=== PATIENT | male | born 1975 | race Caucasian/White ===

== ENCOUNTER 2024-04-05 13:02 | Emergency (ER) | payer BC, SELFPAY ==
[2024-04-05 13:06] VITALS: BP 146/92
--- NOTE | 2024-04-05 13:26 | ED.GENMED ---
History of Present Illness
General
Chief Complaint: Musculo-Skeletal Complaint
Source: patient
Exam Limitations: none
Time Seen by Provider: 04/05/24 13:10
Nursing documentation reviewed up to this point in time: agreed with
History of Present Illness
History of Present Illness:
Patient is a 48-year-old male who presents to the ER for evaluation of left knee injury. Patient was playing basketball on Tuesday 2 days ago and tweaked his left knee while playing. He did continue to play the rest of the game. He also did the
same thing yesterday but felt a pop in his knee. He is able to bear weight but does have discomfort. He complains of pain along the medial aspect of the left knee. No other injuries.
Past History
Past History
ED Past Medical History: Other (Lumbar disc disease)
ED Past Surgical History: Orthopedic (Lumbar disc surgery 2016)
Patient has exhibited threatening behavior?: No
Social History
Tobacco: Non-smoker
Alcohol: Occasional
Drug: None
Personal:
Living: with family
Employment: Employed (Self-employed)
Family History
Family History: Hypertension and CAD (Father with history of coronary artery disease, CABG in his 70s. He is in his 80s alive and well.)
Review of Systems
Review of Systems
Allergies reviewed?: Yes
All Other Systems: ROS reviewed and negative except as documented in HPI and ROS
Constitutional: Reports no symptoms
Musculoskeletal: Reports other (left knee pain/injury )
Skin: Reports no symptoms
Psychiatric: Reports no symptoms
Phy Exam
General Physical Exam
General Presentation: no apparent distress
General age: appears stated age
General Skin: warm and dry
General Habitus: normal
General Mental: alert
General Hydration: appears well hydrated
Neurological Exam
Neurological Exam: alert and oriented x3
Musculoskeletal Exam
Musculoskeletal Exam: other (lle with strong pulses no obvious swelling mild discomfort with medial stress no laxity acl appears intact nml distal sensation )
Course
Orders/Labs/Results
Orders:
Orders
04/05/24 13:15
Knee, Left 4 or More Views [CR Knee - Left 4 Or More View*] Urgent
Comment:
Reason For Exam: trauma
04/05/24 13:29
Ibuprofen [Motrin] 600 mg PO NOW STA
Vital Signs
Initial and Last Documented VS:
Initial Vital Signs
Temp Pulse Resp Pulse Ox
98.3 F 75 19 98
04/05/24 13:04 04/05/24 13:04 04/05/24 13:04 04/05/24 13:04
Last Documented Vital Signs
Temp Pulse Resp BP Pulse Ox
98.3 F 75 19 146/92 98
04/05/24 13:04 04/05/24 13:04 04/05/24 13:04 04/05/24 13:06 04/05/24 13:04
MDM/Problems Addressed
Differential Diagnosis Includes:
not limited to: knee sprain /strain/fx
MDM/Problems Addressed:
Symptoms are consistent w/ knee sprain strain injury small effusion on x-ray no obvious fracture will DC with crutches immobilizer NSAIDs RICE and Ortho follow
*Radiology
Radiology exam reviewed: radiology read reviewed
*Pulse Oximetry
Patient hypoxic: no
*Critical Care Note
Total Time (30-74mins, 75-104mins- exclusive of procedures): Not Applicable
ED Attending Note
-
Portions of this chart may have been created with voice recognition software.� Occasional wrong word or��sound alike� substitutions may have occurred due to the inherent limitations of voice recognition software.
Discharge Plan
Departure
Patient Disposition: Home (Routine Discharge)
Date of Disposition: 04/05/24
Time of Disposition: 14:30
Patient with high blood pressure during this ER visit?: Yes
Discharge Problem:
Knee sprain
Instructions: Knee Immobilizer (DC), Knee Sprain (DC)
Prescriptions:
No Action
levetiracetam 500 MG tablet
1,000 mg PO BID Qty: 60 0RF
Referrals:
Artemio Gorman MD [Active] -
Humble Lyons MD [Active] -
Graham Stephenson DO [Family Provider] -
Activity Restrictions/Additional Instructions:
Wear immobilizer for support. You may use crutches as needed for ambulation. Remove immobilizer night while sleeping. Keep elevated as much as possible.
ice the affected area for the next 24 hours times of time several times a day. Call orthopedics today for an appointment in next several days return for any worsening symptoms .
Interventions
Interventions:
*Risk Screen - Suicide Last Done: 04/05/24 13:06
*General Assessment Last Done: 04/05/24 13:04
*Neglect/Abuse Screening Last Done: 04/05/24 13:06
ED- Fall Risk Assessment Last Done: 04/05/24 13:15
*ED COVID-19 Vaccine History Last Done: 04/05/24 13:04
ED-Musculoskeletal Assessment Last Done: 04/05/24 13:15
Discharge Date and Time
Print Language: DJIBOUTIAN
[2024-04-05] MEDS: MOTRIN 600 MG PO (13:39)
== END 2024-04-05 14:57 | disposition home or self-care (01) ==
LOC: EMR 13:02
PROVIDERS: EMERGENCY PHYSICIAN Emergency Medicine; FAMILY PHYSICIAN Internal Medicine
DX: S83.92XA Sprain of unspecified site of left knee, initial encounter (principal); X58.XXXA Exposure to other specified factors, initial encounter; Y93.67 Activity, basketball; R03.0 Elevated blood-pressure reading, without diagnosis of hypertension; M19.90 Unspecified osteoarthritis, unspecified site
CPT/HCPCS: 99283; 29505; 73564

== ENCOUNTER → 2024-06-05 11:09 | Outpatient (REF) | payer BC, SELFPAY ==
[2024-06-05 12:12] LABS: % Basophils 0.6 % (0-2); % Eosinophils 2.8 % (0-6); % Immature Granulocytes 0.3 % (0-0.5); % Lymphocytes 32.1 % (20.5-51.1); % Monocytes 7.3 % (1.7-9.3); % Neutrophils 56.9 % (42.2-75.2); Absolute Eosinophils 0.2 10^3/uL (0-0.7); Absolute Lymphocytes 2.1 10^3/uL (1.2-3.4); Absolute Monocytes 0.5 10^3/uL (0.1-0.6); Absolute Neutrophils 3.7 10^3/uL (1.4-6.5); Hematocrit 46.4 % (39.0-52.0); Hemoglobin 15.9 g/dL (13.0-18.0); Mean Corp Hgb Conc. 34.3 g/dL (33.0-37.0); Mean Corpuscular Volume 87.5 fL (80.0-94.0); Mean Platelet Volume 9.1 fL (7.4-10.4); Nucleated Red Blood Cells % 0 % (-); Platelet Count 345 10^3/uL (130-400); Red Cell Dist. Width 12.8 % (11.5-14.5); White Blood Cell Count 6.5 10^3/uL (4.8-10.8)
[2024-06-05 12:13] LABS: Urine Albumin Negative (Neg - Trace); Urine Bilirubin Negative (Negative); Urine Character Clear (Clear); Urine Color Yellow; Urine Glucose Negative (Negative); Urine Ketone Negative (Negative); Urine Leukocyte Negative (Negative); Urine Nitrite Negative (Negative); Urine Occult Blood 1+ (Negative); Urine Urobilinogen Negative (Neg - 1+)
[2024-06-05 12:42] LABS: ALT (SGPT) 29 U/L (0-50); AST (SGOT) 25 U/L (17-59); Albumin 4.9 g/dl (3.5-5.0); Alkaline Phosphatase 40 U/L (38-126); Blood Urea Nitrogen 21 mg/dl (9-20); Calcium 10.1 mg/dl (8.4-10.2); Carbon Dioxide 29 mmol/L (22-30); Chloride 102 mmol/L (98-107); Glucose 89 mg/dl (70-99); HDL Cholesterol 57 mg/dl; LDL Cholesterol, Calculated 145 mg/dl; Potassium 4.8 mmol/L (3.5-5.1); Sodium 142 mmol/L (135-145); Total Cholesterol 219 mg/dl (50-199); Total Protein 7.3 g/dl (6.3-8.2); Triglyceride 86 mg/dl (10-149); Very Low Density Lipoprotein 17 mg/dl (0-30); eGFR > 60.00
[2024-06-05 12:56] LABS: Urine Red Blood Cell 0-2 /HPF (0-2); Urine White Cell 0-2 /HPF (0-5)
[2024-06-05 12:57] LABS: Urine Mucus Moderate
[2024-06-05 12:59] LABS: Vitamin D, 25-OH*** 53.8 ng/mL (30-80)
[2024-06-05 13:13] LABS: PSA, Total - Screen 0.76 ng/ml (0.0-4.0); TSH 1.31 uIU/ml (0.47-4.68)
== END ==
LOC: REG 11:09
PROVIDERS: ATTENDING PHYSICIAN Internal Medicine
DX: Z00.00 Encounter for general adult medical examination without abnormal findings (principal); Z12.5 Encounter for screening for malignant neoplasm of prostate
CPT/HCPCS: 36415; 80053; 80061; 81003; 81015; 82306; 84443; 85025; G0103

== ENCOUNTER 2024-06-30 17:38 | Emergency (ER) | payer BC, SELFPAY ==
[2024-06-30 17:39] VITALS: BP 133/82
[2024-06-30 18:24] VITALS: BMI 28.3
--- NOTE | 2024-06-30 18:26 | EDRN ---
Pt thinks he has diverticulitis because he had a bout of it 3-5 years ago. Pt was up all night last night and thought he was constipated but today when he was urinating, he developed pain and it was reminiscent of diverticulitis flare. Abd pain
comes and goes, sharp in nature. No pain currently. Little nausea, no vomiting. No cp, sob, fever/chills/cough, dizziness. Pt says he has very low energy today. Pt took miralax this morning. Pt has been passing small amounts of stool since
last night. Last normal BM 2-3 days ago. No diarrhea.
--- NOTE | 2024-06-30 18:38 | ED.GENMED ---
History of Present Illness
General
Chief Complaint: Abdominal Symptoms
Source: patient
Time Seen by Provider: 06/30/24 18:13
History of Present Illness
History of Present Illness:
48yoM with a history of diverticulosis presenting for evaluation of abdominal pain. Symptoms initially began yesterday evening. He reports pain in his suprapubic and left lower quadrant regions. He also had a sharp pain in his penis while
urinating today. Symptoms are identical to his previous bout of diverticulitis about 5 years ago. He also reports constipation and is only able to pass small pieces of stool at a time. Last bowel movement was about 2 to 3 days ago. He reports
chills but denies any fevers. He denies any testicular pain, hematuria, vomiting, chest pain, shortness of breath. No previous abdominal surgeries. Last colonoscopy was 5 years ago which was normal other than the diverticulosis.
Past History
Past History
ED Past Medical History: Other (Lumbar disc disease)
ED Past Surgical History: Orthopedic (Lumbar disc surgery 2016)
Patient has exhibited threatening behavior?: No
Social History
Tobacco: Non-smoker
Alcohol: Occasional
Drug: None
Personal:
Living: with family
Employment: Employed (Self-employed)
Family History
Family History: Hypertension and CAD (Father with history of coronary artery disease, CABG in his 70s. He is in his 80s alive and well.)
Phy Exam
General Physical Exam
General Presentation: well appearing and no apparent distress
General age: appears stated age
General Skin: warm and dry
General Habitus: normal
General Mental: alert
General Hydration: appears well hydrated
ENT Exam
ENT Exam: normocephalic
Pulmonary Exam
Pulmonary Exam: no respiratory distress
Gastrointestinal Exam
Gastrointestinal Exam: soft, non distended and other (+Tenderness in suprapubic region. Abdomen soft, non-distended. No rebound or guarding. )
[place] Coma Scale
Eye Opening: Spontaneous
Verbal Response: Oriented
Motor Response: Obeys Commands
GCS Total Score: 15
Skin Exam
Skin Exam: normal color and warm/dry
Psychiatric Exam
Psychiatric Exam: normal mood/affect
Course
Orders/Labs/Results
Orders:
Orders
06/30/24 18:29
IV Insert/Care/Rem.- Treatment PRN
06/30/24 18:37
Complete Blood Count/With Diff Urgent
Comprehensive Metabolic Panel Urgent
Lipase Urgent
06/30/24 18:38
CT Abd/pelvis W Iv Cont Urgent
Comment:
Reason For Exam: Suprapubic, LLQ pain
Ketorolac [Toradol] 15 mg IV NOW STA
06/30/24 18:40
Urinalysis Reflex To Culture Urgent
Date Specimen was Collected: 06/30/24
Time Specimen was Collected: 18:38
Urine Microscopic Reflex Cult Urgent
06/30/24 20:11
Amoxicillin 875 mg/Clav 125 mg [Augmentin 875 mg/125 mg] 1 tablet PO NOW STA
Abnormal Lab Results
06/30/24 06/30/24
18:37 18:40
WBC 15.0 H 10^3/uL
(4.8-10.8)
Abs Immat Gran (auto) 0.1 H 10^3/uL
(0-0.05)
Absolute Neuts (auto) 11.2 H 10^3/uL
(1.4-6.5)
Absolute Monos (auto) 1.6 H 10^3/uL
(0.1-0.6)
Lymphocytes % 13.7 L %
(20.5-51.1)
Monocytes % 10.4 H %
(1.7-9.3)
Total Bilirubin 2.0 H mg/dl
(0.2-1.3)
Ur Occult Blood Reflex 3+ A
(Negative)
Urine RBC 11-15 A /HPF
(0-2)
06/30/24 18:37
06/30/24 18:37
Vital Signs
Initial and Last Documented VS:
Initial Vital Signs
Temp Pulse Resp BP Pulse Ox
98.7 F 94 20 133/82 99
06/30/24 17:39 06/30/24 17:39 06/30/24 17:39 06/30/24 17:39 06/30/24 17:39
Last Documented Vital Signs
Temp Pulse Resp BP Pulse Ox
98.7 F 74 14 116/71 97
06/30/24 17:39 06/30/24 20:20 06/30/24 20:20 06/30/24 20:20 06/30/24 20:20
MDM/Problems Addressed
Differential Diagnosis Includes:
48yoM here with lower abd pain x 1 day and constipation x 2-3 days. Hx of diverticulitis and this feels the same. +Chills but no fevers. He is afebrile and hemodynamically stable. He is well-appearing in no acute distress. No signs of peritonitis
on abdominal exam. Differential diagnosis includes but is not limited to: Diverticulitis, colitis, appendicitis, UTI, kidney stone
Initial ED plan: Check abdominal labs, UA, and CT abdomen. IV Toradol for pain.
*Critical Care Note
Total Time (30-74mins, 75-104mins- exclusive of procedures): Not Applicable
Update Note
Update Note:
CT reveals severe acute diverticulitis. No evidence of abscess or perforation. Leukocytosis noted with a white count of 15. Microscopic hematuria noted on urinalysis without signs of infection. Pain is controlled on reassessment. He feels well
for discharge. He was started on a 10-day course of Augmentin, first dose given in ED. Advised clear liquid diet until pain improves. Patient was informed of microscopic hematuria which has also been present on the last 2 urinalyses. Will refer
to urology for outpatient follow-up. Advised close PCP follow-up and strict ED return precautions discussed. Patient expressed understanding and is agreeable to plan. He was discharged in stable condition.
ED Attending Note
-
Portions of this chart may have been created with voice recognition software.� Occasional wrong word or��sound alike� substitutions may have occurred due to the inherent limitations of voice recognition software.
Discharge Plan
Departure
Patient Disposition: Home (Routine Discharge)
Date of Disposition: 06/30/24
Time of Disposition: 20:11
Patient with high blood pressure during this ER visit?: No
Discharge Problem:
Acute diverticulitis, Microscopic hematuria
Instructions: Diverticulitis (DC)
Prescriptions:
New
amoxicillin-pot clavulanate 875-125 mg tablet
1 tab PO Q12H 10 Days Qty: 19 0RF
Referrals:
Jarrod Hanson MD [Active] -
Graham Stephenson DO [Family Provider] -
Activity Restrictions/Additional Instructions:
Take antibiotics as prescribed. Eat a clear liquid diet until pain improves.
Please follow-up with your family doctor. You should also see a urologist for the blood seen in your urine.
Return to the ER with any worsening symptoms, severe pain, fevers, or if you do not have any improvement in 4 days.
Interventions
Interventions:
*Risk Screen - Suicide Last Done: 06/30/24 18:25
*General Assessment Last Done: 06/30/24 17:39
*Neglect/Abuse Screening Last Done: 06/30/24 18:25
*ED COVID-19 Vaccine History Last Done: 06/30/24 18:25
KT-Szajwd-Xvjgovnzuw Assessment Last Done: 06/30/24 18:52
Discharge Date and Time
Discharge Date/Time: 06/30/24 20:34
Print Language: LATVIAN
[2024-06-30 18:44] VITALS: BP 129/80
[2024-06-30] MEDS: TORADOL 15 MG IV (18:44)
[2024-06-30 18:47] LABS: % Basophils 0.3 % (0-2); % Eosinophils 0.3 % (0-6); % Immature Granulocytes 0.5 % (0-0.5); % Lymphocytes 13.7 % (20.5-51.1); % Monocytes 10.4 % (1.7-9.3); % Neutrophils 74.8 % (42.2-75.2); Absolute Basophils 0.1 10^3/uL (0-0.2); Absolute Immature Granulocytes 0.1 10^3/uL (0-0.05); Absolute Lymphocytes 2.1 10^3/uL (1.2-3.4); Absolute Monocytes 1.6 10^3/uL (0.1-0.6); Absolute Neutrophils 11.2 10^3/uL (1.4-6.5); Hemoglobin 15.2 g/dL (13.0-18.0); Mean Corp Hgb Conc. 35.3 g/dL (33.0-37.0); Mean Corpuscular Hgb 29.9 pg (27.0-31.0); Mean Corpuscular Volume 84.5 fL (80.0-94.0); Mean Platelet Volume 8.6 fL (7.4-10.4); Nucleated Red Blood Cells % 0 % (-); Platelet Count 298 10^3/uL (130-400); Red Blood Cell Count 5.09 10^6/uL (4.70-6.10); Red Cell Dist. Width 12.7 % (11.5-14.5)
[2024-06-30 18:52] LABS: Urine Albumin Negative (Neg - Trace); Urine Bilirubin Negative (Negative); Urine Character Clear (Clear); Urine Color Yellow; Urine Glucose Negative (Negative); Urine Ketone Negative (Negative); Urine Leukocyte Negative (Negative); Urine Nitrite Negative (Negative); Urine Occult Blood 3+ (Negative); Urine Urobilinogen Negative (Neg - 1+)
[2024-06-30 19:00] VITALS: BP 124/76
[2024-06-30 19:01] LABS: ALT (SGPT) 20 U/L (0-50); AST (SGOT) 19 U/L (17-59); Albumin 4.5 g/dl (3.5-5.0); Alkaline Phosphatase 47 U/L (38-126); Blood Urea Nitrogen 14 mg/dl (9-20); Carbon Dioxide 27 mmol/L (22-30); Chloride 100 mmol/L (98-107); Estimated Creatinine Clearance 95 ml/min; Glucose 99 mg/dl (70-99); Lipase 62 U/L (23-300); Potassium 4.2 mmol/L (3.5-5.1); Sodium 138 mmol/L (135-145); Total Protein 6.9 g/dl (6.3-8.2); eGFR > 60.00
[2024-06-30 20:20] VITALS: BP 116/71
[2024-06-30] MEDS: AUGMENTIN 875 MG/125 MG 1 TABLET PO (20:21)
== END 2024-06-30 20:34 | disposition home or self-care (01) ==
LOC: EMR 17:38
PROVIDERS: Physician Assistant; EMERGENCY PHYSICIAN Emergency Medicine; FAMILY PHYSICIAN Internal Medicine
DX: K57.32 Diverticulitis of large intestine without perforation or abscess without bleeding (principal); R31.29 Other microscopic hematuria; K59.00 Constipation, unspecified
CPT/HCPCS: 99284; 96374; 74177; 80053; 81003; 81015; 83690; 85025; Q9967

== ENCOUNTER 2024-10-17 22:27 | Emergency (ER) | payer BC, SELFPAY ==
[2024-10-17 22:43] VITALS: BP 126/80
--- NOTE | 2024-10-18 00:19 | ED.GENMED ---
History of Present Illness
General
Chief Complaint: Musculo-Skeletal Complaint
Source: patient
Exam Limitations: none
Time Seen by Provider: 10/17/24 23:47
History of Present Illness
History of Present Illness:
49yo [id number] male presenting for evaluation of a right shoulder injury. Patient was playing basketball and he was hit by another player directly in the right shoulder a few hours ago. He felt the right shoulder joint pop and possibly
popped back into place. He is having pain with range of motion. He also has some paresthesias in the area.
Past History
Past History
ED Past Medical History: Other (Lumbar disc disease)
ED Past Surgical History: Orthopedic (Lumbar disc surgery 2016)
Patient has exhibited threatening behavior?: No
Social History
Tobacco: Non-smoker
Alcohol: Occasional
Drug: None
Personal:
Living: with family
Employment: Employed (Self-employed)
Family History
Family History: Hypertension and CAD (Father with history of coronary artery disease, CABG in his 70s. He is in his 80s alive and well.)
Phy Exam
General Physical Exam
General Presentation: well appearing and no apparent distress
General age: appears stated age
General Skin: warm and dry
General Habitus: normal
General Mental: alert
ENT Exam
ENT Exam: normocephalic
Neurological Exam
Neurological Exam: alert
Musculoskeletal Exam
Musculoskeletal Exam: other (R shoulder: No deformity or skin changes. +Mild tenderness to palpation. ROM mildly decreased but patient able to abduct to 90 degrees. 2+ radial pulse and sensation intact.)
Skin Exam
Skin Exam: normal color and warm/dry
Psychiatric Exam
Psychiatric Exam: normal mood/affect
Course
Orders/Labs/Results
Orders:
Orders
10/17/24 22:47
Shoulder, Right, Trauma [CR Shoulder, Trauma - Right] Urgent
Comment:
Reason For Exam: FELT SHOULDER POP PLAYING BB
10/17/24 23:52
Sling Right-Treatment ONCE
Vital Signs
Initial and Last Documented VS:
Initial Vital Signs
Temp Pulse Resp BP Pulse Ox
98.9 F 96 20 126/80 98
10/17/24 22:43 10/17/24 22:43 10/17/24 22:43 10/17/24 22:43 10/17/24 22:43
Last Documented Vital Signs
Temp Pulse Resp BP Pulse Ox
98.9 F 96 20 126/80 98
10/17/24 22:43 10/17/24 22:43 10/17/24 22:43 10/17/24 22:43 10/17/24 22:43
MDM/Problems Addressed
Differential Diagnosis Includes:
49yoM here with R shoulder pain after an injury this evening. [place] a pop in the joint. No deformity or skin changes noted on exam. RUE is neurovascularly intact. Differential diagnosis includes: dislocation, shoulder separation, sprain, fracture
X-rays obtained which are negative for acute osseous abnormalities. Sling provided and supportive care discussed. Advised f/u with orthopedics for further care. Patient discharged in stable condition.
*Critical Care Note
Total Time (30-74mins, 75-104mins- exclusive of procedures): Not Applicable
ED Attending Note
-
Portions of this chart may have been created with voice recognition software.� Occasional wrong word or��sound alike� substitutions may have occurred due to the inherent limitations of voice recognition software.
Discharge Plan
Departure
Patient Disposition: Home (Routine Discharge)
Date of Disposition: 10/17/24
Time of Disposition: 23:52
Patient with high blood pressure during this ER visit?: No
Discharge Problem:
Right shoulder injury
Instructions: Shoulder Sprain (DC)
Prescriptions:
No Action
amoxicillin-pot clavulanate 875-125 mg tablet
1 tab PO Q12H 10 Days Qty: 19 0RF
Referrals:
Artemio Gorman MD [Active] -
Activity Restrictions/Additional Instructions:
Wear sling for immobilization. Apply ice to affected area. Take Tylenol and ibuprofen for pain.
Please call tomorrow to schedule a follow-up with orthopedics.
Interventions
Interventions:
*Risk Screen - Suicide Last Done: 10/17/24 22:43
*General Assessment Last Done: 10/17/24 23:57
*Neglect/Abuse Screening Last Done: 10/17/24 22:43
ED- Fall Risk Assessment Last Done: 10/17/24 23:58
*ED COVID-19 Vaccine History Last Done: 10/17/24 23:57
*Nursing Disposition Last Done: 10/17/24 23:59
ED-Musculoskeletal Assessment Last Done: 10/17/24 23:58
Discharge Date and Time
Discharge Date/Time: 10/17/24 23:59
Print Language: LITHUANIAN
== END 2024-10-17 23:59 | disposition home or self-care (01) ==
LOC: EMR 22:27
PROVIDERS: EMERGENCY PHYSICIAN Emergency Medicine; FAMILY PHYSICIAN Internal Medicine
DX: S49.91XA Unspecified injury of right shoulder and upper arm, initial encounter (principal); W50.0XXA Accidental hit or strike by another person, initial encounter; Y93.67 Activity, basketball
CPT/HCPCS: 99283; 73030